=== PATIENT | female | born 1980 | race Caucasian/White ===

== ENCOUNTER 2022-06-07 13:35 | Outpatient (CLI) | payer BC | END 2022-06-07 13:36 | disposition home or self-care (01) | LOC: ULT 13:35 | PROVIDERS: ATTEND Nurse Practitioner Adult Health | DX: R50.9 Fever, unspecified (principal); M25.542 Pain in joints of left hand; M25.541 Pain in joints of right hand; I42.9 Cardiomyopathy, unspecified; R59.1 Generalized enlarged lymph nodes; R53.83 Other fatigue | CPT/HCPCS: 93306 ==